=== PATIENT | female | born 1980 | race Caucasian/White ===

== ENCOUNTER 2024-10-24 13:55 | Outpatient (AMB) | payer OTHER, SELFPAY ==
[2024-10-24 14:01] VITALS: BP 147/82; PULSE 70; RESP 18; TEMP 36.3; O2SAT 97; BMI 32.5
--- NOTE | 2024-10-24 14:01 | PD.RESCLINIC ---
Vital Signs 10/24/24 14:01 Height 1.7 m Height Method Stated Weight 94.432 kg Weight Measurement Method Standing Scale BMI 32.5 BP 147/82 H Blood Pressure Source Automatic Cuff Blood Pressure Location Left Upper Arm Position Sitting Respiration 18 Pulse 70 Pulse Source Monitor Temp 97.3 F Temp Source Oral Pulse Oximetry (%) 97 Oxygen Delivery Method Room Air Allergies/Meds Allergies & Medications Allergies No Known Allergies Allergy (Verified 10/24/24 14:02) Medication Reconciliation nirmatrelvir 300 mg (150 mg x2)-ritonavir 100 mg tablet,dose pack (Paxlovid) See Rx Instructions PO .COMPLEX covid #30 tabs 02/23/23 [Rx Confirmed 10/24/24] tirzepatide (weight loss) 2.5 mg/0.5 mL subcutaneous pen injector (Zepbound) 2.5 mg (0.5 mL) subcut QWEEK #2 mL 10/24/24 [Rx] MA Intake Visit Data Collection New Patient or Established: New Patient (never been to [facility] [place]) Seen by Clinical Staff ONLY (RN/MA): No Pain Present Currently: No Pain scale:: 0 Pain Scale Used: Rendon-Khan/Numerical Power Machine Operator Required: No PCP or OBGYN visit in last 3 months: Yes Hx Now: No Do You Feel Safe at Home: Yes Authorities Contacted: N/A Smoking Status Smoking Status: Never smoker Immunization / Flu Flu Vaccine in the Last 12 Months: No Flu Vaccine Exclusion Criteria: No Exclusion Criteria Past Medical History Social History SMOKING STATUS: Smoking status: Never smoker Patient Portal Questionaires Social History Tobacco History Smoking Status: Never smoker Domestic Abuse History Do You Feel Safe at Home: Yes Review of Systems Report any current symptoms Only answer those that you have currently: Past Medical History Past Medical History Have you ever been diagnosed with any of the following: History of Present Illness HPI Narrative 44 years old female with past medical history of celiac disease, obesity , pelvic fracture, exp laproscopy debulking of endometrosis d/lovaries , IVF , C- section .Came to [facility] [place] [place] academic health clinic for management of obesity. She denies nausea, vomiting, headache , pain abdomen . Her weight today was 217 LB. She has tried 6-month with strict calorie control less than 1500 and has been on physical exercise for days of week and more than 45 minutes or more and has failed previous weight loss medication.Her blood pressure was 147/82 , attributes it to anxiety. says she usually runs low. will eveulate her BP in next visit . PMH- as above PSH- 03/2011 -exp laproscopy Debulking of endometriosis bilateral ovaries 06/2011? exp laproscopy Debulking of endometriosis bilateral ovaries 2010?IVF 2012? ?implantation 09/13/2015? 03/02?CHELSEA/BSO Allergy:codine (gets flushes ) Review of Systems Review of Systems Systems Reviewed: All systems reviewed, normal except as documented Narrative Review of Systems: GENERAL: Comfortable adult seen ,no acute distress,obese VITALS: All vitals were reviewed and the pulse ox is 98% on room air HEENT: Normocephalic, atraumatic. Pupils are equal and reactive. Oral mucosa is moist. NECK: Supple, nontender, no JVD CHEST: Symmetrical, atraumatic and with equal expansion ,Nontender on palpation CARDIOVASCULAR: Heart regular rhythm & rate. S1/S2. no murmur or gallop rub or extra beats. LUNGS: Clear to auscultation bilaterally with symmetrical chest rise. No laboring tachypnea or wheezing. No intercostal subcostal retraction. No rales and no rhonchi. ABDOMEN: Soft, flat, nontender to palpation, no guarding or rebound tenderness. Active and normal bowel sounds. EXTREMITIES:Moves all 4 extremities,No B/L LE edema. SKIN: Warm and dry, no jaundice or rashes noted. NEURO: Patient is AO x 3, Cranial nerves II through XII grossly intact. There is no focal neurologic deficits noted. PSYCHIATRIC: Patient is in normal mood, cooperative, no SI or HI or hallucinations. Assessment & Plan Diagnosis / Problem List (1) Obesity (BMI 30.0-34.9): Status: Acute Assessment & Plan: Her weight today was 217 pounds, She has tried 6-month with strict calorie control less than 1500 and has been on physical exercise for days of week and more than 45 minutes or more and has failed previous weight loss medication. will start her in Zepbound . Plan: Start her on Zepbound 2.5 mg continue to exercise continue diatery modifications (2) Sleep apnea in adult: Status: Acute Assessment & Plan: She has suspected Sleep apnea , snores at night . Stop bang 3 points (intermediate risk for moderate to severe RUBEN) Plan: Will continue weight loss, start zepbound , if still no improvement she she may need sleep studies later. (3) Celiac disease: Status: Acute Assessment & Plan: Has a history of celiac Plan: Currently stable , will continue to monitor Office Procedures [facility] Level of Care Nursing/Assessment Patient Status: Initial/New Patient Nursing Assessment/Reassessment: Medication Reconciliation, Update PMH in EMR and Vital Signs Coordination of Care: Complex Care and Chronic Disease 1-5, Consent,records obtained, informed consent, Education Simp Pt/Fam, 1 Ins Authorization and Staff clarify orders New Patient Charge New Patient Point Assignment: [id number] New Patient Point Charge: CORPORATE RISK ANALYST Level 3 ([id number])
== END 2024-10-24 14:39 | disposition home or self-care (01) ==
LOC: HODAHC 13:55
PROVIDERS: PCP Internal Medicine; Referring Provider Internal Medicine; Supervising Provider Internal Medicine; Visit Provider Student in an Organized Health Care Education/Training Program
DX: E66.9 Obesity, unspecified (principal); Z68.32 Body mass index [BMI] 32.0-32.9, adult; G47.30 Sleep apnea, unspecified; K90.0 Celiac disease
CPT/HCPCS: 99203; G0463

== ENCOUNTER → 2024-11-23 | Outpatient (CLI) | payer OTHER, SELFPAY ==
[2024-11-23 10:45] LABS: Follicle Stimulating Hormone 16.27 mIU/mL (See Note)
[2024-12-01 06:41] LABS: Estradiol, Ultrasensitive* 92 pg/mL; Testosterone,Total* 64 ng/dL (2-45)
== END | disposition home or self-care (01) ==
PROVIDERS: PCP Internal Medicine; Referring Provider Internal Medicine; Visit Provider Internal Medicine
DX: N95.1 Menopausal and female climacteric states (principal)
CPT/HCPCS: 36415; 82670; 83001; 84403

== ENCOUNTER 2025-04-06 14:47 | Outpatient (AMB) | payer OTHER, SELFPAY ==
--- NOTE | 2025-04-06 15:42 | PD.RESCLINIC ---
Allergies/Meds Allergies & Medications Allergies No Known Allergies Allergy (Verified 04/06/25 15:46) Medication Reconciliation nirmatrelvir 300 mg (150 mg x2)-ritonavir 100 mg tablet,dose pack (Paxlovid) See Rx Instructions PO .COMPLEX covid #30 tabs 02/23/23 [Rx Confirmed 04/06/25] tirzepatide (weight loss) 2.5 mg/0.5 mL subcutaneous pen injector (Zepbound) 5 mg subcut QWEEK #2 mL 01/09/25 [Rx Confirmed 04/06/25] tirzepatide (weight loss) 5 mg/0.5 mL subcutaneous pen injector (Zepbound) 5 mg (0.5 mL) subcut QWEEK Obesity 4 weeks #2 mL 04/12/25 [Rx] DRU Intake Visit Data Collection New Patient or Established: Established Patient (seen at [facility] within 3 years) Seen by Clinical Staff ONLY (RN/DRU): No Pain Present Currently: No Pain scale:: 0 Pain Scale Used: Rendon-Khan/Numerical After School Program Coordinator Required: No PCP or OBGYN visit in last 3 months: No Hx Now: No Do You Feel Safe at Home: Yes Authorities Contacted: N/A Smoking Status Smoking Status: Never smoker For Televisit only Telemed Video/Phone Visit: Yes Verbal consent obtained for Telemed visit?: Yes Verbal Consent witness name: Michelle Aragon MA Telemed Video/Phone visit w/Clinical Staff: 21-30 min Immunization / Flu Flu Vaccine in the Last 12 Months: No Flu Vaccine Exclusion Criteria: No Exclusion Criteria Past Medical History Social History SMOKING STATUS: Smoking status: Never smoker Patient Portal Questionaires Social History Tobacco History Smoking Status: Never smoker Domestic Abuse History Do You Feel Safe at Home: Yes Review of Systems Report any current symptoms Only answer those that you have currently: Past Medical History Past Medical History Have you ever been diagnosed with any of the following: History of Present Illness HPI Narrative Follow-up visit conducted via telehealth. Follow-up visit for weight loss, obesity, use of Zepbound. Patient has not been using Zepbound for 6 months. Previous weight of 217 pounds when starting Zepbound. Reports not being down to 192 pounds. With a height of 5 foot 7 inches, this places her at a body mass index still of 30.1, still at stage I obesity. Has tolerated the injections fairly well. Did note some occasional injection site irritation/itch. She thinks that this may be due to an air bubble in the syringe though. She found that she did better when she laid down flat and injected, so that there was no air potentially introduced. Has noted early satiety consistent with the medication use. Has had some intermittent abdominal pain but a very mild severity. Bowels moving regularly. Remains on gluten-free diet due to underlying celiac. Has had some occasional blood noted with bowel movements, likely attributable to internal hemorrhoid. She continues to follow a macros/micros diet, and is working out regularly with a personal security specialist including weight resistance training. She has noted some plateauing of her weight loss recently, she does attribute this to having a busier schedule and not being as faithful with her diet and workout schedule. Discussion was held on potentially increasing the dose of Zepbound. For now, she wishes to remain at the lower dose. The prior authorization for Zepbound has since , and a new one will need to be done. This will be done later today. Review of Systems Review of Systems Systems Reviewed: All systems reviewed, normal except as documented Objective/Exam Narrative Physical exam: Physical exam not performed secondary to telehealth visit Assessment & Plan Diagnosis / Problem List (1) Obesity (BMI 30.0-34.9): Status: Acute Assessment & Plan: Her weight today reported as 192 pounds, She has continued 6-months with strict calorie control less than 1500 and has been on physical exercise for multiple days of week and more than 45 minutes or more and has failed previous weight loss medication, now noting success with Zepbound 2.5 mg weekly, with a weight loss of 25 pounds over 6 months, or approximately 1 pound per week. Plan: Continue on Zepbound 2.5 mg continue to exercise continue diatery modifications (2) Sleep apnea in adult: Status: Acute Assessment & Plan: She has suspected Sleep apnea , snores at night . Stop bang 3 points (intermediate risk for moderate to severe RUBEN) Plan: Will continue weight loss, continue zepbound , if still no improvement with further weight loss she she may need sleep study later. (3) Celiac disease: Status: Acute Assessment & Plan: Has a history of celiac Plan: Currently stable , will continue to monitor Plan Case discussed with Attending Dr. Bhakta. Elva Tipton PGY1 Disclaimer: This note was dictated by speech recognition. Minor errors in drum drier may be present due to voice recognition software. Additional Assessment Internal Medicine Attending Note: Case discussed with and agree with note and management plan of Resident Physician as per Resident's Note above. Issues of concern for present visit are as follows: Follow-up visit completed via telehealth. Has been using Zepbound now for 6 months. Has achieved a 25 pound weight loss with slow steady incremental loss. Notes some plateauing of weight loss over the last month to month and a half, but wishes to hold off on increasing the dose of Zepbound at this time. Weight today of 192 pounds places patient at BMI of 30.1, still stage I obesity. Continue with current diet and exercise. We will renew Zepbound 2.5 mg weekly, she will need a prior authorization completed. She continues to follow with weight loss physician. Isreal Bhakta MD Physician Billing Established Patient Established Patient: E/M Level 2-CPT 50004 Office Procedures [facility] Level of Care Nursing/Assessment Patient Status: Established Patient Nursing Assessment/Reassessment: Medication Reconciliation and Update PMH in EMR Coordination of Care: Complex Care and Chronic Disease 1-5, Consent,records obtained, informed consent, Education Simp Pt/Fam and Staff clarify orders Established Patient Charge Established Patient Point Assignment: 70 Telehealth Telemed Phone/Video with patient at home & Dr,PA,INTERIOR DESIGN COORDINATOR: Yes
== END 2025-04-06 16:36 | disposition home or self-care (01) ==
LOC: HODAHC 14:47
PROVIDERS: PCP Internal Medicine; Referring Provider Internal Medicine; Supervising Provider Internal Medicine
DX: E66.811 Obesity, class 1 (principal); G47.30 Sleep apnea, unspecified; K90.0 Celiac disease; Z68.30 Body mass index [BMI] 30.0-30.9, adult
CPT/HCPCS: 99212; G0463

== ENCOUNTER → 2025-04-13 | Outpatient (CLI) | payer OTHER, SELFPAY ==
[2025-04-13 08:41] LABS: Follicle Stimulating Hormone 27.03 mIU/mL (See Note)
[2025-04-23 06:48] LABS: Estradiol, Ultrasensitive* 57 pg/mL; Testosterone,Total* 65 ng/dL (2-45)
== END | disposition home or self-care (01) ==
LOC: COPL 07:14
PROVIDERS: PCP Internal Medicine; Referring Provider Internal Medicine; Visit Provider Internal Medicine
DX: N95.1 Menopausal and female climacteric states (principal)
CPT/HCPCS: 36415; 82670; 83001; 84403

== ENCOUNTER → 2025-07-06 | Outpatient (CLI) | payer OTHER, SELFPAY ==
[2025-07-06 10:20] LABS: Follicle Stimulating Hormone 8.71 mIU/mL (See Note)
[2025-07-13 06:33] LABS: Estradiol, Ultrasensitive* 215 pg/mL; Testosterone,Total* 174 ng/dL (2-45)
== END | disposition home or self-care (01) ==
LOC: COPL 08:41
PROVIDERS: PCP Internal Medicine; Referring Provider Internal Medicine; Visit Provider Internal Medicine
DX: N95.1 Menopausal and female climacteric states (principal)
CPT/HCPCS: 36415; 82670; 83001; 84403